=== PATIENT | male | born 1965 | race Caucasian/White ===

== ENCOUNTER 2016-04-12 21:21 | Emergency (ER) | payer OTHER ==
[~2016-04-12] VITALS: Ht 172.7 cm; Wt 76.2 kg
[~2016-04-12 21:21] MED LIST: KEFLEX500 MG PO; NAPROXEN500 MG PO; NOHOMEMEDS; PERCOCET 7.51 TABLET PO; SILVADENE20 GM TP; ZOLOFT50 MG PO
[2016-04-12 21:36] VITALS: BP 149/88
[2016-04-12 22:22] LABS: EOSINOPHIL (%) 2.4 % (0-5); EOSINOPHIL COUNT 0.1 K/uL (0-0.3); HEMATOCRIT 39.8 % (38.0-50.0); IMMATURE GRANULOCYTE (%) 0.2 % (0.0-0.7); IMMATURE GRANULOCYTE COUNT 0.1 K/uL; LYMPHOCYTE COUNT 1.5 K/uL (1.0-2.8); MCH 31.1 PG (29.0-34.0); MCHC 34.9 G/DL (30.0-36.0); MEAN PLAT.VOLUME 9.2 uM^3 (9.0-12.4); MONOCYTE (%) 13.7 % (3-12); MONOCYTE COUNT 0.8 K/uL (0-0.8); NEUTROPHIL (%) 56.5 % (45-76); NEUTROPHIL COUNT 3.1 K/uL (1.8-6.4); PLATELET COUNT 136 K/uL (156-360); RBC DIS.WIDTH-CV 12.7 % (11.8-14.6); RBC DIS.WIDTH-SD 40.2 % (39-53); RED BLOOD COUNT 4.47 M/uL (4.00-5.50); WHITE BLOOD COUNT 5.5 K/uL (4.1-10.2)
[2016-04-12 22:34] LABS: CHLORIDE 109 mEq/L (99-109); POTASSIUM 3.6 mEq/L (3.7-5.4); SODIUM 142 mEq/L (136-147)
[2016-04-12 22:35] LABS: GLUCOSE 110 mg/dL (70-99)
[2016-04-12 22:37] LABS: ANION GAP 14 MEQ/L (2-14)
[2016-04-12 22:39] LABS: GFR ESTIMATE (CALCULATED) > 59 mL/min/
[2016-04-12 22:40] LABS: UREA NITROGEN (BUN) 14 mg/dL (9-23)
[2016-04-12] MEDS ORDERED: HYCODAN SYRUP480 ML PO (23:26)
[2016-04-12] MEDS ORDERED: PREDNISONE50 MG PO (23:26)
[2016-04-12] MEDS ORDERED: DOXYCYCLINE HY100 MG PO (23:26)
[2016-04-12 23:51] LABS: POINT-OF-CARE METER ID UU14100415
== END 2016-04-13 00:08 | disposition home or self-care (01) ==
LOC: EME 21:21
PROVIDERS: Emergency Medicine
DX: J40 Bronchitis, not specified as acute or chronic (principal)
CPT/HCPCS: 71010; 80048; 82948; 85025; 94640; 99281; 99285; J2930

== ENCOUNTER 2017-03-30 23:47 | Emergency (ER) | payer OTHER ==
[~2017-03-30] VITALS: Ht 170.2 cm; Wt 72.7 kg
[~2017-03-30 23:47] MED LIST changes: +DOXYCYCLINE HY100 MG PO; +HYCODAN SYRUP480 ML PO; +PREDNISONE50 MG PO
[2017-03-31] MEDS ORDERED: NAPROSYN500 MG PO (00:57)
[2017-03-31] MEDS ORDERED: PERCOCET 5/31 TABLET PO (01:16)
[2017-03-31 01:38] VITALS: BP 118/79
== END 2017-03-31 01:39 | disposition home or self-care (01) ==
LOC: EME 23:47
DX: S83.91XA Sprain of unspecified site of right knee, initial encounter (principal); X50.1XXA Overexertion from prolonged static or awkward postures, initial encounter
CPT/HCPCS: 73564; 99281; 99284